=== PATIENT | female | born 1995 | race African-American/Black ===

== ENCOUNTER 2023-06-29 16:10 | Emergency (ER) | payer OTHER ==
[~2023-06-29] VITALS: Ht 167.6 cm; Wt 58.0 kg
[2023-06-29 16:21] VITALS: BP 99/78; PULSE 114; RESP 20; TEMP 98.7; O2SAT 98
[2023-06-29] MEDS ORDERED: LIDOCAINE HCL/EPINEPHRINE 1%-EPI 1:100,000 20 ML VIAL INFIL ONE (18:30)
[2023-06-29] MEDS ORDERED: MORPHINE SULFATE 10 MG/ML CPJ IM ONE (21:15)
[2023-06-29] MEDS ORDERED: CEPH500C2 MT (22:06)
[2023-06-29] MEDS ORDERED: T3 PO (22:06)
== END 2023-06-29 22:21 | disposition home or self-care (01) ==
LOC: ER 16:21
DX: N75.1 Abscess of Bartholin's gland (principal); Z86.73 Personal history of transient ischemic attack (TIA), and cerebral infarction without residual deficits
CPT/HCPCS: 10060; 96372; 99283; J3490; J2270; Z7610 ×2